=== PATIENT | male | born 1985 | race Hispanic/Latino ===

== ENCOUNTER 2024-05-23 10:40 | Inpatient (IN) | payer BC ==
[2024-05-23] VITALS (51 sets, daily range): BP systolic 108–173; BP diastolic 51–99; PULSE 61–108; RESP 11–31; TEMP 97.6–98.5; O2SAT 92–98
[~2024-05-23] VITALS: Ht 167.6 cm; Wt 83.9 kg
[2024-05-23] MEDS ORDERED: ROBAXIN ONE (11:13)
[2024-05-23] MEDS ORDERED: CARDIZEM ONE (11:19)
[2024-05-23 11:23] LABS: BASOPHIL % 0.6 % (0.2-1.2); EOSINOPHIL # 0.1 10^3/uL (0.0-0.2); EOSINOPHIL % 1.4 % (0.0-5.0); HEMATOCRIT(ML) 53.3 % (37.0-53.0); HEMOGLOBIN 18.4 g/dL (13.9-16.3); LYMPHOCYTES # 2.29 10^3/uL1 (1.0-4.8); LYMPHOCYTES % 32.9 % (24.0-44.0); MEAN CORP HGB 29.9 pg (26-34); MEAN CORP HGB CONCENTRATION 34.5 g/dL (33-36.5); MEAN CORP VOLUME 86.7 fL (78-100); MONOCYTES # 0.6 10^3/uL (0.3-0.8); MONOCYTES % 8.1 % (5.0-12.0); NEUTROPHIL # 3.9 10^3/uL (1.8-7.7); NEUTROPHILS % 56.7 % (41.0-85.0); PLATELET COUNT 254 10^3/uL (150-400); RED BLOOD CELL 6.15 10^6/uL (4.50-5.90)
[2024-05-23] MEDS: CARDIZEM IV STA (11:24)
[2024-05-23 11:26] LABS: +ADD MANUAL DIFF(NO CHRG) NO
[2024-05-23] MEDS: NS 1000ML 1,000 ML IV STA (11:28)
[2024-05-23] MEDS: NS 1000ML 1,000 ML STA (11:33)
[2024-05-23 11:46] LABS: ALBUMIN/GLOBULIN RATIO 1.025; ANION GAP 12.5; BUN/CREATININE RATIO 11.76 (10.0-20.0); CARBON DIOXIDE 29.5 mmol/L (20.0-32); CREATININE SERUM 0.85 mg/dL (0.59-1.40); EST GFR, NON-AA 100.3 (>/=60)
[2024-05-23] MEDS ORDERED: NEXTERONE IV ONE ×2 (12:47→14:20)
[2024-05-23] MEDS ORDERED: ASPIRIN ONE (12:47)
[2024-05-23] MEDS ORDERED: NEXTERONE 360 MG/200 ML BAG 200 ML IV ONE ×3 (12:47→20:05)
[2024-05-23] MEDS: CORDARONE IV STA (12:56)
[2024-05-23] MEDS: ASPIRIN PO STA (12:56)
[2024-05-23] MEDS: CORDARONE 150 MG in D5W 100ML 100 ML IV STA (13:00)
[2024-05-23] MEDS ORDERED: TYLENOL PO PRN (13:30)
[2024-05-23] MEDS: NEXTERONE 360 MG/200 ML BAG 200 ML IV ONE (14:32)
[2024-05-23] MEDS: LOVENOX SQ SCH (14:41)
[2024-05-23] MEDS: NEXTERONE 360 MG/200 ML BAG 200 ML IV SCH (20:21)
[2024-05-24] VITALS (62 sets, daily range): BP systolic 105–160; BP diastolic 52–105; PULSE 64–84; RESP 13–27; TEMP 97–98; O2SAT 93–99
[2024-05-24 05:25] LABS: BASOPHIL % 0.4 % (0.2-1.2); EOSINOPHIL # 0.1 10^3/uL (0.0-0.2); EOSINOPHIL % 1.1 % (0.0-5.0); HEMATOCRIT(ML) 51.1 % (37.0-53.0); HEMOGLOBIN 17.6 g/dL (13.9-16.3); IG % 0.2 % (0.00-0.50); LYMPHOCYTES # 3.07 10^3/uL1 (1.0-4.8); LYMPHOCYTES % 34.2 % (24.0-44.0); MEAN CORP HGB 30.1 pg (26-34); MEAN CORP HGB CONCENTRATION 34.4 g/dL (33-36.5); MEAN CORP VOLUME 87.5 fL (78-100); MONOCYTES # 0.8 10^3/uL (0.3-0.8); MONOCYTES % 8.8 % (5.0-12.0); NEUTROPHILS % 55.3 % (41.0-85.0); RED BLOOD CELL 5.84 10^6/uL (4.50-5.90); RED CELL DISTRIBUTION WIDTH 12.4 % (11.5-14.5)
[2024-05-24 05:34] LABS: ANION GAP 13.7; BUN/CREATININE RATIO 15.47 (10.0-20.0); CALCIUM 8.7 mg/dL (8.4-10.5); CARBON DIOXIDE 26.1 mmol/L (20.0-32); CREATININE SERUM 0.84 mg/dL (0.59-1.40); EST GFR, NON-AA 101.7 (>/=60); POTASSIUM 3.8 mmol/L (3.6-5.2)
[2024-05-24] MEDS: PROTONIX PO SCH (08:06)
[2024-05-24] MEDS ORDERED: ASPIRIN ONE (14:51)
[2024-05-24] MEDS: CORDARONE PO SCH (14:57)
[2024-05-24] MEDS: ASPIRIN EC PO SCH (14:58)
[2024-05-24] MEDS ORDERED: FURO20TA3 PO (15:09)
[2024-05-24] MEDS ORDERED: AMIO200T55 PO (15:09)
[2024-05-24] MEDS ORDERED: ASPI325T17 PO (15:09)
[2024-05-25] MEDS ORDERED: LASIX PO SCH (09:00)
== END 2024-05-24 16:16 | disposition home or self-care (01) | DRG 308 ==
LOC: ER 10:40 → ICU 12:45
PROVIDERS: ADMIT Internal Medicine; ATTEND Internal Medicine
DX: I48.91 Unspecified atrial fibrillation (principal); I50.21 Acute systolic (congestive) heart failure; F17.210 Nicotine dependence, cigarettes, uncomplicated; Z79.82 Long term (current) use of aspirin; I51.7 Cardiomegaly
CPT/HCPCS: 36415; 71045; 71275; 80048; 80053; 83735; 84443; 84484; 85025; 93005; 93306; 99285; G0378; J0282; J1650; J2800; J3490; J7030; J7060; J8499; Q9965

== ENCOUNTER → 2024-07-08 | Outpatient (CLI) | payer BC ==
[~2024-07-08] MED LIST: AMIO200T55 PO; ASPI325T17 PO; FURO20TA3 PO
== END | disposition home or self-care (01) ==
LOC: RAD 15:02
PROVIDERS: ATTEND Internal Medicine
DX: I07.1 Rheumatic tricuspid insufficiency (principal); I48.91 Unspecified atrial fibrillation
CPT/HCPCS: 93306